=== PATIENT | female | born 1940 | race Caucasian/White ===

== ENCOUNTER → 2016-04-10 | Outpatient (CLI) | payer OTHER, BC ==
--- NOTE | 2016-04-20 10:09 | MA ---
Bilateral Screening Digital Mammograms with iCAD Clinical Indications: Routine screening mammograms. Technique: Standard digital cephalocaudal and mediolateral oblique projections were obtained. [facility] Comparison: October 2014, September 2013, September 2012, August 2011 and August 2010 Breast Parenchymal Density: B, scattered densities. There is atherosclerotic vascular calcification. Findings: There are no masses, no suspicious calcifications, and no secondary signs of malignancy. Impression: Negative mammogram. BI-RADS 1. Recommendation: Routine screening mammograms in one year. The patients information is entered into a reminder system with a target due date for her next mammog jacqueline. Negative mammography should not preclude additional workup of a clinically suspicious finding.
== END ==
LOC: CIMAGING 08:32
DX: Z12.31 Encounter for screening mammogram for malignant neoplasm of breast (principal)
CPT/HCPCS: G0202

== ENCOUNTER → 2018-02-01 | Outpatient (CLI) | payer OTHER, BC | LOC: CIMAGING 09:46 | PROVIDERS: ATTEND Family Medicine | DX: M25.551 Pain in right hip (principal); M85.89 Other specified disorders of bone density and structure, multiple sites | CPT/HCPCS: 36415-PO; 73502-PO ==

== ENCOUNTER → 2018-03-10 | Outpatient (CLI) | payer OTHER, BC | LOC: BRMIMAGING 13:14 | PROVIDERS: ATTEND Family Medicine | DX: Z12.31 Encounter for screening mammogram for malignant neoplasm of breast (principal); Z80.3 Family history of malignant neoplasm of breast; Z13.820 Encounter for screening for osteoporosis; M85.89 Other specified disorders of bone density and structure, multiple sites ==